=== PATIENT | female | born 2000 | race Two or more races ===

== ENCOUNTER 2022-08-03 08:14 | Outpatient (CLI) | payer OTHER | END 2022-08-03 11:00 | disposition home or self-care (01) | LOC: PRENATAL 08:14 | PROVIDERS: ATTEND Obstetrics & Gynecology Maternal & Fetal Medicine | DX: O26.849 Uterine size-date discrepancy, unspecified trimester (principal); O28.5 Abnormal chromosomal and genetic finding on antenatal screening of mother; Z3A.18 18 weeks gestation of pregnancy ==

== ENCOUNTER 2022-08-16 11:00 | Outpatient (CLI) | payer OTHER | END 2022-08-16 12:47 | disposition home or self-care (01) | LOC: PRENATAL 11:00 | PROVIDERS: ATTEND Obstetrics & Gynecology Maternal & Fetal Medicine | DX: O35.3XX0 Maternal care for (suspected) damage to fetus from viral disease in mother, not applicable or unspecified (principal); O35.9XX0 Maternal care for (suspected) fetal abnormality and damage, unspecified, not applicable or unspecified; Z3A.19 19 weeks gestation of pregnancy ==